=== PATIENT | female | born 1955 | race Two or more races ===

== ENCOUNTER 2024-03-07 13:04 | Outpatient (RCR) | payer OTHER, MEDICAID, SELFPAY ==
[2024-02-23 13:45] LABS: Basophils % (Auto) 1 % (0-2.5); Eosinophils # (Auto) 0.1 Thou/mm3 (0.0-0.5); Eosinophils % (Auto) 2 % (0-10); Hematocrit 37.6 % (36.0-46.0); Hemoglobin 12.5 g/dL (12.0-16.0); Immature Granulocytes % (Auto) 0 % (0-0); Immature Granulocytes Auto 0.01 Thou/mm3 (0.00-0.00); Lymphocytes % (Auto) 27 % (10-50); Mean Corpuscular HGB Conc 33.2 g/dl (31.0-37.0); Mean Corpuscular Hemoglobin 32.1 pg (25.0-35.0); Mean Corpuscular Volume 96 fL (80-100); Monocytes # (Auto) 0.6 Thou/mm3 (0.0-0.8); Monocytes % (Auto) 17 % (0-12); Neutrophils # (Auto) 1.9 Thou/mm3 (1.8-7.7); Neutrophils % (Auto) 53 % (37-80); Nucleated Red Blood Cell % 0 /100 WBC (0); Platelet Count 184 Thou/mm3 (140-440); RDW Standard Deviation 46.9 fL (36.4-46.3); White Blood Count 3.6 Thou/mm3 (3.6-11.0)
[2024-02-23 14:07] LABS: Alanine Aminotransferase 12 U/L (10-49); Albumin, Serum 4.9 gm/dL (3.4-4.8); Alkaline Phosphatase 80 U/L (46-116); Anion Gap 7 (7-16); Aspartate Amino Transferase 22 U/L (0-34); BUN/Creatinine Ratio 19 Ratio (12-20); Bilirubin,Total 0.6 mg/dL (0.3-1.2); Blood Urea Nitrogen 13 mg/dL (9-23); Calcium 9.9 mg/dL (8.3-10.6); Calcium (Corrected) 9.9 mg/dL (8.5-10.1); Carbon Dioxide 26.2 mMol/L (20.0-31.0); Chloride 105 mMol/L (98-107); Creatinine (Component) 0.7 mg/dL (0.6-1.3); Globulin 2.5 gm/dL (2.3-3.5); Glucose 78 mg/dL (74-106); LDH (Lactate Dehydrogenase) 188 U/L (120-246); Osmolality,Calculated 274 (275-295); Potassium 3.8 mMol/L (3.4-5.1); Sodium 138 mMol/L (136-145); Total Protein 7.4 gm/dL (5.7-8.2); eGFR > 60 See Note
== END 2024-03-19 23:59 | disposition home or self-care (01) ==
LOC: SCTC 13:04
PROVIDERS: Internal Medicine Hematology & Oncology; PCP Internal Medicine; Referring Provider Internal Medicine; Visit Provider Nurse Practitioner Family
DX: Z51.11 Encounter for antineoplastic chemotherapy (principal); C82.13 Follicular lymphoma grade II, intra-abdominal lymph nodes; E04.1 Nontoxic single thyroid nodule; E78.00 Pure hypercholesterolemia, unspecified
CPT/HCPCS: 36591; 80053; 83615; 84550; 85025; 96367; 96413; 96415; 96417; 99212; A4216; J1100; J1453; J1642; J2405; J3490; J7040; J7050; J9033; Q5115; A9270; G0463

== ENCOUNTER 2024-03-24 08:35 | Outpatient (RCR) | payer OTHER, MEDICAID, SELFPAY ==
[2024-03-22 15:41] LABS: Basophils % (Auto) 1 % (0-2.5); Eosinophils # (Auto) 0.1 Thou/mm3 (0.0-0.5); Eosinophils % (Auto) 5 % (0-10); Hematocrit 33.8 % (36.0-46.0); Hemoglobin 11.4 g/dL (12.0-16.0); Immature Granulocytes % (Auto) 0 % (0-0); Immature Granulocytes Auto 0.01 Thou/mm3 (0.00-0.00); Lymphocytes # (Auto) 0.6 Thou/mm3 (1.0-4.8); Lymphocytes % (Auto) 21 % (10-50); Mean Corpuscular HGB Conc 33.7 g/dl (31.0-37.0); Mean Corpuscular Hemoglobin 32.3 pg (25.0-35.0); Mean Corpuscular Volume 96 fL (80-100); Monocytes # (Auto) 0.5 Thou/mm3 (0.0-0.8); Monocytes % (Auto) 19 % (0-12); Neutrophils # (Auto) 1.5 Thou/mm3 (1.8-7.7); Neutrophils % (Auto) 54 % (37-80); Nucleated Red Blood Cell % 0 /100 WBC (0); Platelet Count 173 Thou/mm3 (140-440); RDW Standard Deviation 43.1 fL (36.4-46.3); Red Blood Count 3.53 Miln/mm3 (4.00-5.20)
[2024-03-22 15:56] LABS: White Blood Count 2.7 Thou/mm3 (3.6-11.0)
[2024-03-22 16:00] LABS: Alanine Aminotransferase 18 U/L (10-49); Albumin, Serum 4.6 gm/dL (3.4-4.8); Albumin/Globulin Ratio 2.1 (1.2-2.2); Alkaline Phosphatase 88 U/L (46-116); Anion Gap 8 (7-16); Aspartate Amino Transferase 18 U/L (0-34); BUN/Creatinine Ratio 28 Ratio (12-20); Bilirubin,Total 0.4 mg/dL (0.3-1.2); Blood Urea Nitrogen 17 mg/dL (9-23); Calcium 9.7 mg/dL (8.3-10.6); Calcium (Corrected) 9.7 mg/dL (8.5-10.1); Chloride 102 mMol/L (98-107); Creatinine (Component) 0.6 mg/dL (0.6-1.3); Globulin 2.2 gm/dL (2.3-3.5); Glucose 101 mg/dL (74-106); Osmolality,Calculated 275 (275-295); Potassium 3.7 mMol/L (3.4-5.1); Sodium 137 mMol/L (136-145); Total Protein 6.8 gm/dL (5.7-8.2); eGFR > 60 See Note
== END 2024-04-19 23:59 | disposition home or self-care (01) ==
LOC: SCTC 08:35
PROVIDERS: Internal Medicine Hematology & Oncology; PCP Internal Medicine; Referring Provider Internal Medicine; Visit Provider Nurse Practitioner Family
DX: Z51.11 Encounter for antineoplastic chemotherapy (principal); C82.13 Follicular lymphoma grade II, intra-abdominal lymph nodes; E04.1 Nontoxic single thyroid nodule; E78.00 Pure hypercholesterolemia, unspecified
CPT/HCPCS: 36591; 80053; 85025; 96367; 96413; 96415; 96417; A4216; J1100; J1453; J1642; J2405; J3490; J7040; J7050; J9033; Q5115; A9270

== ENCOUNTER 2024-05-04 13:03 | Outpatient (RCR) | payer OTHER, MEDICAID, SELFPAY ==
[2024-04-26 13:48] LABS: Basophils % (Auto) 1 % (0-2.5); Eosinophils # (Auto) 0.1 Thou/mm3 (0.0-0.5); Eosinophils % (Auto) 4 % (0-10); Hematocrit 34.8 % (36.0-46.0); Hemoglobin 11.8 g/dL (12.0-16.0); Immature Granulocytes % (Auto) 0 % (0-0); Immature Granulocytes Auto 0.01 Thou/mm3 (0.00-0.00); Lymphocytes # (Auto) 0.6 Thou/mm3 (1.0-4.8); Lymphocytes % (Auto) 19 % (10-50); Mean Corpuscular HGB Conc 33.9 g/dl (31.0-37.0); Mean Corpuscular Hemoglobin 32.2 pg (25.0-35.0); Mean Corpuscular Volume 95 fL (80-100); Monocytes # (Auto) 0.6 Thou/mm3 (0.0-0.8); Monocytes % (Auto) 18 % (0-12); Neutrophils # (Auto) 1.8 Thou/mm3 (1.8-7.7); Neutrophils % (Auto) 58 % (37-80); Nucleated Red Blood Cell % 0 /100 WBC (0); Platelet Count 203 Thou/mm3 (140-440); RDW Standard Deviation 42.5 fL (36.4-46.3); Red Blood Count 3.66 Miln/mm3 (4.00-5.20); White Blood Count 3.1 Thou/mm3 (3.6-11.0)
[2024-04-26 14:06] LABS: Alanine Aminotransferase 19 U/L (10-49); Albumin, Serum 4.8 gm/dL (3.4-4.8); Albumin/Globulin Ratio 2.1 (1.2-2.2); Alkaline Phosphatase 80 U/L (46-116); Anion Gap 8 (7-16); Aspartate Amino Transferase 12 U/L (0-34); BUN/Creatinine Ratio 33 Ratio (12-20); Bilirubin,Total 0.5 mg/dL (0.3-1.2); Blood Urea Nitrogen 20 mg/dL (9-23); Calcium 9.7 mg/dL (8.3-10.6); Calcium (Corrected) 9.7 mg/dL (8.5-10.1); Carbon Dioxide 26.8 mMol/L (20.0-31.0); Chloride 103 mMol/L (98-107); Creatinine (Component) 0.6 mg/dL (0.6-1.3); Globulin 2.3 gm/dL (2.3-3.5); Glucose 81 mg/dL (74-106); Osmolality,Calculated 277 (275-295); Potassium 4.1 mMol/L (3.4-5.1); Sodium 138 mMol/L (136-145); Total Protein 7.1 gm/dL (5.7-8.2); eGFR > 60 See Note
--- NOTE | 2024-05-04 14:01 | CTCFLWUP_ITS ---
Patient: AMY GRECO : 1955 Page 2 of 2 FOLLOW UP NOTE DATE OF SERVICE: 05/04/2024 NAME: AMY GRECO ACCOUNT: [id number] : 1955 AGE: 69 INTERVAL HISTORY: Patient is here to follow-up. Patient has completed her chemotherapy with BR for lymphoma ONCOLOGY HISTORY: DIAGNOSIS: Follicular lymphoma, unspecified, intra-abdominal lymph nodes [ICD10] C82.93 Stage III follicular lymphoma (10/12/2023) Currently on Bendamustine rituximab (12/02/2023??April 08) Hypercholesterolemia DATE OF DIAGNOSIS: September 2023 STAGE/TNM: Stage III follicular lymphoma ipi score 4 intermediate grade risk TREATMENT HISTORY: Care?Plan Start?Date Cycle Day Intent Rituxan?375?+?Bendamustine?90?Blessing 12/02/2023 1 28 Palliative HISTORY OF PRESENT ILLNESS: Ms. Greco is here at [facility] cancer center. She received 4 cycle of Bendamustine and rituximab. Patient reported nausea during chemotherapy, improved with medications, nausea has im proved since her last treatment on 02/25/2024 . Appetite is also improved. Patient reports good energ y levels. Takes her dog on daily walks. Denies any new side effects or complaints. PET/CT done on 02/11/2024 shows no lymphadenopathy, 20 mm mildly hypermetabolic right thyroid nodule. Denies any co ugh, chest pain, abdominal pain or leg cramps. Ambulating well without any help. HISTORY: Amy Greco is a 69-year-old ENG speaking female with following oncology history. 09/03/2023: Ms. Greco had abdominal ultrasound to evaluate the cause for left upper quadrant abdominal discomfort of 4 weeks duration. 10/12/2023: Ms. Greco was admitted to [facility] for further workup. A CT scan of the abdomen and pelvis to IV contrast was obtained. 10/13/2023: MRI of the thoracic spine as well as lumbar spine with IV contrast was obtained 10/13/2023: Ms. Greco had CT-guided biopsy of the retroperitoneal lymph node 12/02/2023-03/22/2024 : 4 cycles of Bendamustine and rituximab. OTHER MEDICAL HISTORY/CONDITIONS: Follicular lymphoma - dx 10/16/23 Hx Valley Fever Diagnostic Laproscopy with attempted cholecystectomy - 2015 Left Rotator cuff repair - 2011 BRUNO; BSO - 1997 Benny Tubal Ligation - 1989 FAMILY HISTORY: Sibling: Son - Testicular - dx age 2; passed age 3 1/2 Cancer History:?Pat Grandfather-Prostate - dx 80; Mat 1st cousin-breast- SOCIAL HISTORY: Occupational?History:?Retired - Worked [employer] Education?Level:?College Graduate, 4 year degree Marital?Status:? 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 Zofran - 4 mg 1 tab 2 tabs po twice a day prn nausea Medications Last Reconciled by Radha Meza MA on 05/04/2024 ALLERGIES: No Known Drug Allergies REVIEW OF SYSTEMS: A complete 14-point review of systems was performed and is negative except as noted in interval histo ry. PHYSICAL EXAMINATION: VITAL SIGNS: Temperature?99.1, B/P?151/79, Oxygen?Saturation?96% Weight?128?lbs (Change?since?04/28/24: ?-1.4?lbs) PAIN: 0 - No pain ECOG Performance Status: 0 - Asymptomatic and fully active GENERAL APPEARANCE: Appears well, in no apparent distress, appropriately interactive. HEENT: Normocephalic, no temporal wasting, normal conjunctiva, no scleral icterus, normal hearing, li ps without lesions, neck normal range of motion. CARDIOVASCULAR: Not assessed. PULMONARY: Normal respiratory effort, no respiratory distress or use of accessory muscles, speaking i n full sentences, no tachypnea. EXTREMITIES: No pedal edema or cyanosis. SKIN: Normal skin appearance. NEUROLOGIC: Alert and oriented x4. PSHYCHIATRIC: Appropriate affect, mood normal, behavior normal, intact thought and speech. LABORATORY DATA: I have personally reviewed and interpreted each of the patient?s relevant lab tests, abnormal finding s are below: Date 04/26/24 ??WHITE?BLOOD?COUNT?(Thou/mm3) 3.1?L ??RED?BLOOD?COUNT?(Miln/mm3) 3.66?L ??HEMOGLOBIN?(gm/dl) 11.8?L ??HEMATOCRIT?(%) 34.8?L ??PLATELET?COUNT?(Thou/mm3) 203 ??NEUTROPHILS?%,?AUTO?(%) 58 ??LYMPH?%,?AUTO?(%) 19 ??NEUTROPHILS,?AUTO?(Thou/mm3) 1.8 ASSESSMENT/PLAN: Follicular lymphoma B diagnosed in September 2023 Patient completed treatment with Bendamustine and Rituxan tolerated well Patient have radiating pain to the thigh patient had a lymphoma lesions in the lumbar and thoracic sp ine Will get MRI spine to evaluate PET scan in January was negative for any lymphoma Will order PET CT scan Discussed maintenance rituximab as patient had more than 3 areas of lymph node involvement had B symp toms The CT scans do not reveal if patient had splenomegaly or not Patient had symptoms as well as elevated LDH at the time of diagnosis Patient do not want to do maintenance rituximab and want to be on active surveillance CBC CMP LDH uric acid PET CT scan MRI spine RETURN TO CLINIC: With the scan results in 4 to 6 weeks BILLING AND COMPLIANCE: I reviewed external records from providers outside my specialty as summarized above. I spent a total of 50 minutes on this patient?s care on the day of their visit excluding time spent related to any bi lled procedures. This time includes time spent with the patient as well as time spent documenting in the medical record, reviewing patients records and tests, obtaining history, placing orders, communi cating with other healthcare professionals, counseling the patient, family or caregiver, and/or care coordination for the diagnoses above. Electronically Signed by: Lauri Castaneda MD T: 1:59 PM CC: PCP: Terry Colón Referring: Terry Colón This document was completed utilizing speech recognition software. Grammatical errors, random word in sertions, pronoun errors, and incomplete sentences are an occasional consequence of this system due t o software limitations, ambient noise, and hardware issues. Any formal questions or concerns about th e content, text or information contained within the body of this dictation should be directly address ed to the provider for clarification.
== END 2024-05-20 23:59 | disposition home or self-care (01) ==
LOC: SCTC 13:03
PROVIDERS: PCP Internal Medicine; Referring Provider Internal Medicine; Visit Provider Internal Medicine Hematology & Oncology
DX: Z51.11 Encounter for antineoplastic chemotherapy (principal); C82.13 Follicular lymphoma grade II, intra-abdominal lymph nodes; M79.659 Pain in unspecified thigh
CPT/HCPCS: 36591; 80053; 85025; 96367; 96375; 96413; 96415; 96417; 99212; A4216; J1100; J1200; J1453; J1642; J2405; J7040; J7050; J9033; Q5115; A9270; G0463

== ENCOUNTER → 2024-05-31 | Outpatient (CLI) | payer OTHER, MEDICAID, SELFPAY ==
[2024-05-31 09:30] LABS: Alanine Aminotransferase 18 U/L (10-49); Albumin, Serum 4.5 gm/dL (3.4-4.8); Alkaline Phosphatase 75 U/L (46-116); Anion Gap 3 (7-16); Aspartate Amino Transferase 25 U/L (0-34); BUN/Creatinine Ratio 17 Ratio (12-20); Bilirubin,Total 0.5 mg/dL (0.3-1.2); Blood Urea Nitrogen 12 mg/dL (9-23); Calcium 9.8 mg/dL (8.3-10.6); Calcium (Corrected) 9.8 mg/dL (8.5-10.1); Carbon Dioxide 28.6 mMol/L (20.0-31.0); Cardiac Risk Estimate 4.1 RATIO (3.7-5.6); Chloride 110 mMol/L (98-107); Cholesterol 225 mg/dL (132-200); Creatinine (Component) 0.7 mg/dL (0.6-1.3); Globulin 2.3 gm/dL (2.3-3.5); Glucose 100 mg/dL (74-106); HDL Cholesterol 55 mg/dL (40-60); LDL Cholesterol,Calculated 140 mg/dL (0-130); Osmolality,Calculated 282 (275-295); Potassium 3.8 mMol/L (3.4-5.1); Sodium 142 mMol/L (136-145); Total Protein 6.8 gm/dL (5.7-8.2); Triglycerides 151 mg/dL (30-150); eGFR > 60 See Note
== END | disposition home or self-care (01) ==
LOC: SLAB 07:07
PROVIDERS: PCP Internal Medicine; Referring Provider Internal Medicine; Visit Provider Internal Medicine
DX: E78.5 Hyperlipidemia, unspecified (principal)
CPT/HCPCS: 36415; 80053; 80061

== ENCOUNTER → 2024-06-01 | Outpatient (CLI) | payer OTHER, MEDICAID, SELFPAY ==
--- NOTE | 2024-06-01 08:45 | XR_ITS ---
Examination: MRI thoracic spine, without intravenous contrast. MRI thoracic spine , with intravenous contrast. Exam date and time: June 01, 2024 0915 hours INDICATIONS: Diagnosis follicular lymphoma, back pain beginning April 30, 2024 radiating to the leg Technique: Multiple axial, sagittal and coronal images of the thoracic spine have been obtained with the Siemens high-resolution 1.5 Sarah MRI scanner. Images obtained included T2 weighted fat suppressed sagittal sections, TR 3500, TE 46, T2 weighted coronal fat suppressed images, TR 3050, TE 84, T2-weighted transverse fat suppressed images, TR 30-60, TE 63, proton density transverse images, TR 4720, TE 46, and T1 weighted coronal images, TR 560, TE 13. Axial, sagittal and coronal images are obtained post intravenous injection 11 cc gadolinium. Findings: Satisfactory alignment thoracic vertebral bodies No thoracic fracture Diffuse thoracic disc desiccation Postcontrast images demonstrate no abnormal osseous epidural or thoracic cord enhancement No focal disc protrusions impinging upon the thoracic cord IMPRESSION: Diffuse thoracic degenerative disc disease No significant acquired soft tissue spinal stenosis Postcontrast images demonstrate no abnormal osseous epidural or thoracic cord enhancement, no enhancing epidural tumor impinging upon the thoracic cord
== END | disposition home or self-care (01) ==
PROVIDERS: PCP Internal Medicine; Referring Provider Internal Medicine Hematology & Oncology; Visit Provider Internal Medicine Hematology & Oncology
DX: M51.34 Other intervertebral disc degeneration, thoracic region (principal); M53.84 Other specified dorsopathies, thoracic region; C82.93 Follicular lymphoma, unspecified, intra-abdominal lymph nodes
CPT/HCPCS: 72157; A9579

== ENCOUNTER 2024-06-24 13:04 | Emergency (ER) | payer OTHER, SELFPAY ==
[2024-06-24 13:06] VITALS: BMI 19.8
[2024-06-24 13:41] VITALS: BP 132/80; PULSE 87; RESP 18; TEMP 36.9; O2SAT 99
--- NOTE | 2024-06-24 13:54 | XR_ITS ---
Examination: Duplex scan of the lower extremity, unilateral right Date and time of exam: June 24, 2024 1451 hours INDICATIONS: Right thigh and leg pain beginning 2 days ago, diagnosis lymphoma September 2023 Technique: Duplex scan of the extremity veins using B-mode/grayscale imaging and Doppler spectral analysis and color flow Attention is directed to internal echogenicity, compression and augmentation involving these veins, color flow assessment, spectral analysis Findings: Major deep venous structures in the extremity demonstrate normal course and caliber. There is no evidence of deep vein thrombosis. Normal color flow and spectral analysis Impression: Negative for DVT..
--- NOTE | 2024-06-24 13:57 | EDNOTE_ITS ---
<Statement entered by Argelia Fontaine MD - 06/25/24 16:19> As co-signing physician, I was present and available for consult prn. I concur with the plan and care as documented by the midlevel provider. ED Extremity Problem RME/HPI General Chief complaint: Extremity Problem,Nontraumatic Stated complaint: RIGHT LEG PAIN Time Seen by Provider: 06/24/24 13:38 Arrival date/time: 06/24/24 13:04 RME / HPI RME / HPI Narrative: 69-year-old female patient with significant history of lymphoma, under the care of Dr. Tripp, oncologist, came in for evaluation regarding right thigh pain. Has been having worsening right thigh pain since last night, described as dull ache, severity moderate. Patient denies any trauma or fall. Patient called her oncologist and was advised to come to the emergency room to rule out blood clots. Patient denies any other complaints no medication was taken prior to arrival. Related Data Previous Rx's ?Medication ?Instructions ?Recorded acetaminophen 300 mg-codeine 30 mg 1 tab PO Q8H PRN pa in #20 tabs 06/24/24 tablet Allergies Allergy/AdvReac Type Severity Reaction Status Date / Time No Known Allergies Allergy Verified 06/24/24 13:05 Review of Systems Review of Systems Narrative Review of Systems: Review of system reviewed and within normal limits except mentioned in HPI ED Exam Narrative Physical exam: VITAL SIGNS: Reviewed. GENERAL APPEARANCE: Alert and interactive, follows commands, no acute distress, HEAD AND FACE: Non-traumatic. ENT: PERRL, pink conjunctivitis, eyelid no trauma, Mucous membrane moist. NECK: Supple, nontender, no nuchal rigidity. CHEST: No tenderness, no crepitus, no paradoxical movement, no retractions. LUNGS: Clear, well ventilated, symmetric, no rales, no wheezing, no ronchi, no stridor, good breath sounds bilaterally. HEART: Regular rate, regular rhythm, no murmur, no gallops. ABDOMEN: Soft, positive bowel sounds, nondistended, no guarding, nontender, no rebound, no masses, RECTAL: Deferred. GENITAL: Deferred. NEUROLOGICAL: Gross motor function intact sensory function intact, Appropriate for age. MUSCULOSKELETAL: low back nontender, full range of motion. EXTREMITIES: Right thigh tenderness, no swelling, full range of motion. SKIN: Color pink, dry, no rash, no lacerations, no abrasions, no contusions. LYMPHATICS: Deferred. Course Quality Measures none Orders Category Date Time Status US venous doppler LE RT Stat Exams 06/24/24 13:54 Completed XR femur RT 2V Stat Exams 06/24/24 14:00 Completed XR pelvis 1-2V Stat Exams 06/24/24 14:00 Completed Ketorolac Inj [Toradol Inj] Med 06/24/24 13:55 Discontinued 30 mg IM X1 ONE Vital Signs Vital signs: Vital Signs Temperature 98.5 F 06/24/24 13:41 Pulse Rate 87 06/24/24 13:41 Respiratory Rate 18 06/24/24 13:41 Blood Pressure 132/80 H 06/24/24 13:41 Pulse Oximetry (%) 99 06/24/24 13:41 Oxygen Delivery Method Room Air 06/24/24 13:41 Extremity Problem MDM Narrative MDM Narrative:: 69-year-old female patient with significant history of lymphoma, under the care of Dr. Tripp, oncologist, came in for evaluation regarding right thigh pain. Has been having worsening right thigh pain since last night, described as dull ache, severity moderate. Patient denies any trauma or fall. Patient called her oncologist and was advised to come to the emergency room to rule out blood clots. Patient denies any other complaints no medication was taken prior to arrival. Ultrasound of the lower extremities negative for DVT. X-ray of the pelvis and femur also came back normal. Results discussed with the patient and family. Patient was given Toradol with complete resolution of symptoms. Patient was noted to be ambulatory with no pain. Patient appears nontoxic and hemodynamically stable. Patient discharged home and instructed to follow-up with primary care provider in 24 to 48 hours. Instructed to return to the emergency department immediately if worsening of symptoms Patient data External records reviewed:: None Clinical information provided by:: patient and family Social determinants that could affect healthcare access:: none Patient has the following chronic illnesses:: History of lymphoma How is presenting disease/condition affected by chronic disease/condition?: exacerbated by Evaluation data The following diagnostics were reviewed and interpreted by me:: radiology exam(s) Lab and/or radiology exams considered but not ordered:: None Interpretation Summary: See results MDM Medications / Prescriptions Medications or Prescriptions considered but not ordered:: None Medication administrations:: Medication Administration History Discontinued Medications Ketorolac Tromethamine (Ketorolac Inj 60 Mg/2 Ml Vial) 30 mg IM X1 ONE Stop: 06/24/24 13:56 Last Admin: 06/24/24 14:14 Dose: 30 mg Documented By: Toradol IM Consultations Consultation(s) initiated? (list below): No Diagnosis Extremity Problem Differential Diagnosis: superficial thrombophlebitis and deep vein thrombosis of lower extremity Most likely diagnosis given after review of the tests above:: Thigh pain, sciatica Admission Indicated Admission indicated?: not indicated Admission Request Was there a request for admission?: No Disposition Plan Disposition Plan: Discharge Discharge Attestation Discharge Attestation: The patient and all family members were given an opportunity to ask questions and understood the discharge instructions. Discharge instructions specifically effects, indications for sooner follow up or return to the emergency department, and the expected course of current diagnosis. Patient condition: Stable Discharge Plan Plan Patient Disposition: HOME (Self Care) Disposition Comment: stable Prescriptions/Referrals Prescriptions/Med Rec: New acetaminophen-codeine 300-30 mg tablet 1 tab PO Q8H PRN (Reason: pain) Qty: 20 0RF Referrals: Terry Colón MD [Primary Care Provider] - In 1 week Problem List Clinical Impression: Acute thigh pain, Sciatica Patient/Caregiver Discharge Instructions Discharge Activity: activity as tolerated Education Materials: ED Sciatica Additional Instructions: Thank you for the opportunity for serving you today. You are stable for discharged . You are advised to: Follow-up with your PCP in 1 to 2 days Return to ED for worsening of symptoms Increase oral fluids Take medication as prescribed Print Language: [place] Stand Alone Forms: Perlita Award Info., Patient Portal Info Letter CORTEZ/LESLY Supervising Physician CORTEZ/LESLY Supervising Physician: Md Zhen
--- NOTE | 2024-06-24 14:00 | XR_ITS ---
Examination: AP pelvis single view Technique one AP portable pelvis single view Exam date and time: June 24, 2024 1425 hours INDICATIONS: Undergoing chemotherapy, pelvic pain beginning April 2024 FINDINGS: Intact hips and pelvis No osteolytic lesions identified No fractures IMPRESSION: No findings of osseous metastatic disease
--- NOTE | 2024-06-24 14:00 | XR_ITS ---
Examination: Right femur 2 views Technique one AP lateral right femur 2 views Exam date and time: June 24, 2024 1426 hours INDICATIONS: Right femur pain after chemotherapy beginning April 2024 FINDINGS: Significant osteopenia No right hip fracture or dislocation Shaft of the femur intact No cortical bone destruction IMPRESSION: No fracture or cortical bone destruction
[2024-06-24] MEDS: KETOROLAC INJ 60 MG/2 ML VIAL 30 MG IM (14:14)
== END 2024-06-24 16:05 | disposition home or self-care (01) ==
PROVIDERS: Emergency Provider Emergency Medicine; PCP Internal Medicine
DX: M54.31 Sciatica, right side (principal); M79.651 Pain in right thigh; R10.2 Pelvic and perineal pain
CPT/HCPCS: 72170; 73552; 93971; 96372; 99284; J1885

== ENCOUNTER 2024-07-11 11:32 | Outpatient (RCR) | payer OTHER, SELFPAY ==
[2024-07-08 11:29] LABS: Basophils % (Auto) 1 % (0-2.5); Eosinophils # (Auto) 0.2 Thou/mm3 (0.0-0.5); Eosinophils % (Auto) 5 % (0-10); Hemoglobin 11.8 g/dL (12.0-16.0); Immature Granulocytes % (Auto) 5 % (0-0); Immature Granulocytes Auto 0.16 Thou/mm3 (0.00-0.00); Lymphocytes # (Auto) 0.7 Thou/mm3 (1.0-4.8); Lymphocytes % (Auto) 22 % (10-50); Mean Corpuscular HGB Conc 32.8 g/dl (31.0-37.0); Mean Corpuscular Hemoglobin 31.4 pg (25.0-35.0); Mean Corpuscular Volume 96 fL (80-100); Monocytes # (Auto) 0.3 Thou/mm3 (0.0-0.8); Monocytes % (Auto) 11 % (0-12); Neutrophils # (Auto) 1.8 Thou/mm3 (1.8-7.7); Neutrophils % (Auto) 56 % (37-80); Nucleated Red Blood Cell % 0 /100 WBC (0); Platelet Count 269 Thou/mm3 (140-440); RDW Standard Deviation 42.5 fL (36.4-46.3); Red Blood Count 3.76 Miln/mm3 (4.00-5.20); White Blood Count 3.2 Thou/mm3 (3.6-11.0)
[2024-07-08 11:54] LABS: Alanine Aminotransferase 11 U/L (10-49); Albumin, Serum 4.5 gm/dL (3.4-4.8); Albumin/Globulin Ratio 1.8 (1.2-2.2); Alkaline Phosphatase 83 U/L (46-116); Anion Gap 6 (7-16); Aspartate Amino Transferase 26 U/L (0-34); BUN/Creatinine Ratio 17 Ratio (12-20); Bilirubin,Total 0.5 mg/dL (0.3-1.2); Blood Urea Nitrogen 12 mg/dL (9-23); Calcium 9.9 mg/dL (8.3-10.6); Calcium (Corrected) 9.9 mg/dL (8.5-10.1); Carbon Dioxide 27.3 mMol/L (20.0-31.0); Chloride 106 mMol/L (98-107); Creatinine (Component) 0.7 mg/dL (0.6-1.3); Globulin 2.5 gm/dL (2.3-3.5); Glucose 94 mg/dL (74-106); LDH (Lactate Dehydrogenase) 270 U/L (120-246); Osmolality,Calculated 277 (275-295); Potassium 4.1 mMol/L (3.4-5.1); Sodium 139 mMol/L (136-145); Uric Acid 4.7 mg/dL (3.1-7.8); eGFR > 60 See Note
--- NOTE | 2024-07-12 01:36 | CTCFLWUP_ITS ---
Patient: AMY GRECO : 1955 Page 6 of 8 FOLLOW UP NOTE DATE OF SERVICE: 07/11/2024 NAME: AMY GRECO ACCOUNT: [id number] : 1955 AGE: 69 INTERVAL HISTORY: Patient is here to follow-up. Patient has completed her chemotherapy with BR for lymphoma. At last visit was complaining of back aches and ordered mri spine as well x rays as recommended by Radiology . patient is here to dicsuss the results. No new complains. ONCOLOGY HISTORY: DIAGNOSIS: Follicular lymphoma, unspecified, intra-abdominal lymph nodes [ICD10] C82.93 Stage III follicular lymphoma (10/12/2023) Currently on Bendamustine rituximab (12/02/2023??March 2024) Hypercholesterolemia DATE OF DIAGNOSIS: September 2023 STAGE/TNM: Stage III follicular lymphoma ipi score 4 intermediate grade risk TREATMENT HISTORY: Care?Plan Start?Date Cycle Day Intent Rituxan?375?+?Bendamustine?90?Blessing 12/02/2023 1 28 Palliative HISTORY OF PRESENT ILLNESS: Ms. Greco is here at [facility] cancer center. She received 4 cycle of Bendamustine and rituximab. Patient reported nausea during chemotherapy, improved with medications, nausea has improved since her last treatment on 02/25/2024 . Appetite is also improved. Patient reports good energy levels. Takes her dog on daily walks. Denies any new side effects or complaints. PET/CT done on 02/11/2024 shows no lymphadenopathy, 20 mm mildly hypermetabolic right thyroid nodule. Denies any cough, chest pain, abdominal pain or leg cramps. Ambulating well without any help. HISTORY: Amy Greco is a 69-year-old ENG speaking female with following oncology history. 09/03/2023: Ms. Greco had abdominal ultrasound to evaluate the cause for left upper quadrant abdominal discomfort of 4 weeks duration. 10/12/2023: Ms. Greco was admitted to [facility] for further workup. A CT scan of the abdomen and pelvis to IV contrast was obtained. 10/13/2023: MRI of the thoracic spine as well as lumbar spine with IV contrast was obtained 10/13/2023: Ms. Greco had CT-guided biopsy of the retroperitoneal lymph node 12/02/2023-03/22/2024 : 4 cycles of Bendamustine and rituximab. OTHER MEDICAL HISTORY/CONDITIONS: Follicular lymphoma - dx 10/16/23 Hx [place] Fever Diagnostic Laproscopy with attempted cholecystectomy - 2015 Left Rotator cuff repair - 2011 BRUNO; BSO - 1997 Benny Tubal Ligation - 1989 FAMILY HISTORY: Sibling: Son - Testicular - dx age 2; passed age 3 1/2 Cancer History:?Pat Grandfather-Prostate - dx 79; Mat 1st cousin-breast- SOCIAL HISTORY: Occupational?History:?Retired - Worked [employer] Education?Level:?College Graduate, 4 year degree Marital?Status:? 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 Zofran - 4 mg 1 tab 2 tabs po twice a day prn nausea Medications Last Reconciled by Radha Meza MA on 07/11/2024 ALLERGIES: No Known Drug Allergies REVIEW OF SYSTEMS: A complete 14-point review of systems was performed and is negative except as noted in interval history. PHYSICAL EXAMINATION: VITAL SIGNS: Temperature?99.3, B/P?145/90, Oxygen?Saturation?96% Weight?127?lbs (Change?since?07/08/24:?-1.2?lbs) PAIN: 2 - Mild pain ECOG Performance Status: 0 - Asymptomatic and fully active GENERAL APPEARANCE: Appears well, in no apparent distress, appropriately interactive. HEENT: Normocephalic, no temporal wasting, normal conjunctiva, no scleral icterus, normal hearing, lips without lesions, neck normal range of motion. CARDIOVASCULAR: Not assessed. PULMONARY: Normal respiratory effort, no respiratory distress or use of accessory muscles, speaking in full sentences, no tachypnea. EXTREMITIES: No pedal edema or cyanosis. SKIN: Normal skin appearance. NEUROLOGIC: Alert and oriented x4. PSHYCHIATRIC: Appropriate affect, mood normal, behavior normal, intact thought and speech. LABORATORY DATA: I have personally reviewed and interpreted each of the patient?s relevant lab tests, abnormal findings are below: Date 05/31/24 07/08/24 ??WHITE?BLOOD?COUNT?(Thou/mm3) ? 3.2?L ??RED?BLOOD?COUNT?(Miln/mm3) ? 3.76?L ??HEMOGLOBIN?(gm/dl) ? 11.8?L ??HEMATOCRIT?(%) ? 36.0 ??PLATELET?COUNT?(Thou/mm3) ? 269 ??NEUTROPHILS?%,?AUTO?(%) ? 56 ??LYMPH?%,?AUTO?(%) ? 22 ??NEUTROPHILS,?AUTO?(Thou/mm3) ? 1.8 ??GLUCOSE,RANDOM?(mg/dL) 100 94 ??BLOOD?UREA?NITROGEN?(mg/dL) 12 12 ??CREATININE?(mg/dL) 0.70 0.70 ??SODIUM?(mmol/L) 142 139 ??POTASSIUM?(mmol/L) 3.8 4.1 ??CHLORIDE?(mmol/L) 110?H 106 ??CrCl?(CandG)?(ml/min) 68.54 68.65 ??AST/SGOT?(Unit/L) 25 26 ??ALT/SGPT?(Unit/L) 18 11 ??ALKALINE?PHOSPHATASE?(Unit/L) 75 83 ??BILIRUBIN,?TOTAL?(mg/dL) 0.5 0.5 ??PROTEIN?TOTAL?(gm/dl) 6.8 7.0 ??ALBUMIN,?SERUM?(gm/dl) 4.5 4.5 ??GLOBULIN?(gm/dl) 2.3 2.5 ??ALBUMIN/GLOBULIN?RATIO 2.0 1.8 ??CALCIUM,?SERUM?(mg/dL) 9.8 9.9 ??CALCIUM?SERUM?(CORRECTED)?(mg/dL) 9.8 9.9 ??LDH,?TOTAL?(Unit/L) ? 270?H ASSESSMENT/PLAN: Follicular lymphoma B diagnosed in September 2023 Patient completed treatment with Bendamustine and Rituxan tolerated well Patient have radiating pain to the thigh patient had a lymphoma lesions in the lumbar and thoracic spine Will get MRI spine to evaluate PET scan in January was negative for any lymphoma PET scan reordered Discussed maintenance rituximab as patient had more than 3 areas of lymph node involvement had B symptoms The CT scans do not reveal if patient had splenomegaly or not Patient had symptoms as well as elevated LDH at the time of diagnosis Patient do not want to do maintenance rituximab and want to be on active surveillance Mri spine and x ray reviewed and no evidence of malignancy Patient have severe arthritis CBC CMP LDH uric acid PET CT scan ORDERS: Order # Description [id number] MD Follow Up 6 Month [id number] Uric Acid, Serum + Comprehensive Metabolic Panel - 12 + CBC with Auto Diff + MD Follow Up 6 Month [id number] Lactate Dehydrogenase (LDH) RETURN TO CLINIC: 6 month s BILLING AND COMPLIANCE: I reviewed external records from providers outside my specialty as summarized above. I spent a total of 50 minutes on this patient?s care on the day of their visit excluding time spent related to any billed procedures. This time includes time spent with the patient as well as time spent documenting in the medical record, reviewing patients records and tests, obtaining history, placing orders, communicating with other healthcare professionals, counseling the patient, family or caregiver, and/or care coordination for the diagnoses above. Electronically Signed by: Lauri Castaneda MD T: 1:34 AM CC: PCP: Terry Colón Referring: Terry Colón This document was completed utilizing speech recognition software. Grammatical errors, random word insertions, pronoun errors, and incomplete sentences are an occasional consequence of this system due to software limitations, ambient noise, and hardware issues. Any formal questions or concerns about the content, text or information contained within the body of this dictation should be directly addressed to the provider for clarification.
== END 2024-07-18 23:59 | disposition home or self-care (01) ==
LOC: SCTC 11:32
PROVIDERS: PCP Internal Medicine; Referring Provider Internal Medicine; Visit Provider Internal Medicine Hematology & Oncology
DX: C82.93 Follicular lymphoma, unspecified, intra-abdominal lymph nodes (principal)
CPT/HCPCS: 36591; 80053; 83615; 84550; 85025; 99212; A4216; J1642; G0463

== ENCOUNTER 2024-08-09 11:05 | Emergency (ER) | payer OTHER, SELFPAY ==
--- NOTE | 2024-08-09 | XR_ITS ---
Examination: MRI lumbar spine without contrast Date and time of exam: August 09, 2024 1458 hours Comparison October 13, 2023 INDICATIONS: Low back pain radiating down the right leg beginning June 2024 Technique: Multiple MRI axial and sagittal sections lumbar spine. Sagittal T2-weighted images, TR 3500, TE 118 T1 weighted transverse sections, TR 688 T8.5, T2-weighted sagittal sections T1 weighted sagittal sections TR 621, TE 30 T2 axial sections, TR 4, 190, TE 84. Findings: Adequate alignment lumbar vertebral bodies No lumbar fracture Advanced disc narrowing L5-S1 No spondylolisthesis L5-S1 5 mm central paracentral disc bulge displacing the right S1 nerve root L4-L5 3 mm central lumbar disc bulge L3-L4 no disc protrusion L2-L3 no disc protrusion L1-L2 no disc protrusion IMPRESSION: Advanced degenerative disc disease L5-S1 L5-S1 5 mm central paracentral disc bulge displacing the right S1 nerve root L4-L5 3 mm central lumbar disc bulge
[2024-08-09 11:07] VITALS: BMI 20.1
[2024-08-09 11:42] VITALS: BP 129/60; PULSE 77; RESP 19; TEMP 36.8; O2SAT 98
--- NOTE | 2024-08-09 11:54 | PD.EDRME ---
Rapid Medical Screening Exam E Arrival date/time: 08/09/24 11:05 61-year-old female with a history of hyperlipidemia, and follicular lymphoma presents to the emergency room with a chief complaint of right sided hip pain that radiates down her right leg. Patient states she was seen here and was discharged and told she had sciatica patient states her pain has progressively gotten worse and now she is unable to walk without a cane. Patient states she has numbness to the area and tingling. I have greeted and performed a focused initial assessment of this patient. A comprehensive ED assessment and evaluation of the patient, analysis of all test results, and completion of the medical decision making process will be conducted by additional ED providers. Chief Complaint: Extremity Injury, Lower Vital signs: Vital Signs Temperature 98.3 F 08/09/24 11:42 Pulse Rate 77 08/09/24 11:42 Respiratory Rate 19 08/09/24 11:42 Blood Pressure 129/60 08/09/24 11:42 Pulse Oximetry (%) 98 08/09/24 11:42 Oxygen Delivery Method Room Air 08/09/24 11:42 Vital signs reviewed by provider: Yes
[2024-08-09] MEDS: KETOROLAC INJ 60 MG/2 ML VIAL 30 MG IM (12:09)
[2024-08-09 12:25] LABS: Basophils % (Auto) 1 % (0-2.5); Eosinophils % (Auto) 1 % (0-10); Hematocrit 35.8 % (36.0-46.0); Immature Granulocytes % (Auto) 2 % (0-0); Immature Granulocytes Auto 0.14 Thou/mm3 (0.00-0.00); Lymphocytes # (Auto) 0.4 Thou/mm3 (1.0-4.8); Lymphocytes % (Auto) 6 % (10-50); Mean Corpuscular HGB Conc 33.5 g/dl (31.0-37.0); Mean Corpuscular Hemoglobin 30.9 pg (25.0-35.0); Mean Corpuscular Volume 92 fL (80-100); Monocytes # (Auto) 0.4 Thou/mm3 (0.0-0.8); Monocytes % (Auto) 6 % (0-12); Neutrophils # (Auto) 4.9 Thou/mm3 (1.8-7.7); Neutrophils % (Auto) 84 % (37-80); Nucleated Red Blood Cell % 0 /100 WBC (0); Platelet Count 239 Thou/mm3 (140-440); RDW Standard Deviation 41.9 fL (36.4-46.3); Red Blood Count 3.88 Miln/mm3 (4.00-5.20); White Blood Count 5.9 Thou/mm3 (3.6-11.0)
[2024-08-09 12:46] LABS: Alanine Aminotransferase 15 U/L (10-49); Albumin, Serum 4.8 gm/dL (3.4-4.8); Albumin/Globulin Ratio 1.8 (1.2-2.2); Alkaline Phosphatase 91 U/L (46-116); Anion Gap 5 (7-16); Aspartate Amino Transferase 25 U/L (0-34); BUN/Creatinine Ratio 23 Ratio (12-20); Bilirubin,Total 0.6 mg/dL (0.3-1.2); Blood Urea Nitrogen 16 mg/dL (9-23); Calcium 10.4 mg/dL (8.3-10.6); Calcium (Corrected) 10.4 mg/dL (8.5-10.1); Carbon Dioxide 26.6 mMol/L (20.0-31.0); Chloride 107 mMol/L (98-107); Creatinine (Component) 0.7 mg/dL (0.6-1.3); Estimated Creatinine Clearance 66.9 mL/min (>60); Globulin 2.6 gm/dL (2.3-3.5); Glucose 108 mg/dL (74-106); Osmolality,Calculated 279 (275-295); Potassium 4.1 mMol/L (3.4-5.1); Prothrombin Time 11.2 Seconds (9.0-12.2); Sodium 139 mMol/L (136-145); Total Protein 7.4 gm/dL (5.7-8.2); eGFR > 60 See Note
--- NOTE | 2024-08-09 16:53 | EDNOTE_ITS ---
Lower Extremity Injury RME/HPI General Chief Complaint: Extremity Injury, Lower Stated Complaint: EXTREME PAIN IN R) LEG Arrival date/time: 08/09/24 11:05 Limitations: no limitations RME / HPI RME / HPI Narrative: 08/09/24 11:05 61-year-old female with a history of hyperlipidemia, and follicular lymphoma presents to the emergency room with a chief complaint of right sided hip pain that radiates down her right leg. Patient states she was seen here and was discharged and told she had sciatica patient states her pain has progressively gotten worse and now she is unable to walk without a cane. Patient states she has numbness to the area and tingling. I have greeted and performed a focused initial assessment of this patient. A comprehensive ED assessment and evaluation of the patient, analysis of all test results, and completion of the medical decision making process will be conducted by additional ED providers. DR. PENG MAIN ED EVALUATION: 69 year old female presents to the Emergency Department with with complaint of right sided lateral thigh pain. Pain is described as aching and rated severe. Movement and walking exacerbate the pain. No injury reported. No o ther symptoms reported at this time. PMHx: Stage III follicular lymphoma (10/12/2023), currently on Bendamustine rituximab (12/02/2023??March 2024), hypercholesterolemia. Social Hx: No tobacco, alcohol, or substance use. Related Data Previous Rx's ?Medication ?Instructions ?Recorded acetaminophen 300 mg-codeine 30 mg 1 tab PO Q8H PRN pa in #20 tabs 06/24/24 tablet gabapentin 300 mg capsule 300 mg PO TID prn pain #30 c aps 08/09/24 (Neurontin) hydrocodone 10 mg-acetaminophen 1 tab PO BID PRN pain #20 tabs 08/09/24 325 mg tablet Allergies Allergy/AdvReac Type Severity Reaction Status Date / Time No Known Allergies Allergy Verified 06/24/24 13:05 Review of Systems Review of Systems Systems Reviewed: All systems reviewed, normal except as documented Past Medical History Past Medical History GASTROINTESTINAL: Positive Gastrointestinal Disorders (FOLICULAR LYMPHOMA) REPRODUCTIVE: Positive Endometriosis (HYSTERECTOMY 26 YEARS +) Social History SMOKING STATUS: Never smoker SUBSTANCE USE: does not use ALCOHOL: Never Past Medical History Comments PMH COMMENT: Stage III follicular lymphoma (10/12/2023), currently on Bendamustine rituximab (12/02/2023??March 2024), hypercholesterolemia. ED Exam General Limitations: Present no limitations General appearance: Present alert, in no apparent distress and anxious Head Head exam: Present atraumatic, normocephalic and normal inspection Eye Eye exam: Present normal appearance, PERRL and EOMI ENT ENT exam: Present normal exam, normal oropharynx and mucous membranes moist Neck Neck exam: Present normal inspection, full ROM and trachea midline Chest Chest inspection: Present normal inspection and symmetric chest wall rise Respiratory Respiratory exam: Present normal lung sounds bilaterally Cardiovascular Cardiovascular exam: Present regular rate, normal rhythm and normal heart sounds Abdominal Exam Abdominal exam: Present soft and normal bowel sounds Extremities Exam Extremities exam: Present full ROM and tenderness (right lateral thigh tenderness on palpation) Back Exam Back exam: Present normal inspection and full ROM Neurological Exam Neurological exam: Present alert, oriented X3 and CN II-XII intact Psychiatric Psychiatric exam: Present normal affect and normal mood Skin Skin exam: Present warm, dry, intact and normal color Course Quality Measures none Orders Category Date Time Status MRI Screening NOW Care 08/09/24 11:51 Active MR lumbar spine wo con Stat Exams 08/09/24 Completed CBC Stat Lab 08/09/24 12:00 Completed CMP [Comprehensive Metabolic Panel] Stat Lab 08/09/24 12:00 Completed PT [Prothrombin Time with INR] Stat Lab 08/09/24 12:00 Completed PTT [Partial Thromboplastin Time] Stat Lab 08/09/24 12:00 Completed Ketorolac Inj [Toradol Inj] Med 08/09/24 11:51 Discontinued 30 mg IM X1 ONE Vital Signs Vital signs: Vital Signs Temperature 98.3 F 08/09/24 11:42 Pulse Rate 77 08/09/24 11:42 Respiratory Rate 19 08/09/24 11:42 Blood Pressure 129/60 08/09/24 11:42 Pulse Oximetry (%) 98 08/09/24 11:42 Oxygen Delivery Method Room Air 08/09/24 11:42 Extremity Injury, Lower MDM Narrative MDM Narrative:: Noy Chaudhry am scribing for and in the presence of Dr. Peng. Patient data External records reviewed:: [facility] previous records (Reviewed oncology note by Dr. 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 How is presenting disease/condition affected by chronic disease/condition?: exacerbated by Evaluation data The following diagnostics were reviewed and interpreted by me:: lab results and radiology exam(s) Lab and/or radiology exams considered but not ordered:: none Interpretation Summary: Procedure(s): MR lumbar spine wo con Accession Number(s): [id number] cc: Spike Cali; Jeet Tucker MD; Terry Colón MD~ Examination: MRI lumbar spine without contrast Date and time of exam: August 09, 2024 1458 hours Comparison October 13, 2023 INDICATIONS: Low back pain radiating down the right leg beginning June 2024 Technique: Multiple MRI axial and sagittal sections lumbar spine. Sagittal T2-weighted images, TR 3500, TE 118 T1 weighted transverse sections, TR 688 T8.5, T2-weighted sagittal sections T1 weighted sagittal sections TR 621, TE 30 T2 axial sections, TR 4, 190, TE 84. Findings: Adequate alignment lumbar vertebral bodies No lumbar fracture Advanced disc narrowing L5-S1 No spondylolisthesis L5-S1 5 mm central paracentral disc bulge displacing the right S1 nerve root L4-L5 3 mm central lumbar disc bulge L3-L4 no disc protrusion L2-L3 no disc protrusion L1-L2 no disc protrusion IMPRESSION: Advanced degenerative disc disease L5-S1 L5-S1 5 mm central paracentral disc bulge displacing the right S1 nerve root L4-L5 3 mm central lumbar disc bulge Dictated By: Jeet Tucker MD Medications / Prescriptions Medications or Prescriptions considered but not ordered:: none Medication administrations:: Medication Administration History Discontinued Medications Ketorolac Tromethamine (Ketorolac Inj 60 Mg/2 Ml Vial) 30 mg IM X1 ONE Stop: 08/09/24 11:52 Last Admin: 08/09/24 12:09 Dose: 30 mg Documented By: VALDEMAR see above Consultations Consultation(s) initiated? (list below): Yes Consultation #1 (Physician, Specialty, Details): Discussed test HPI, PMHx, lab, radiology results and/or management with Dr. Colón, patient's PCP. Recommends discharged and follow up wtih her as an outpatient. Time: 17:00 Diagnosis Extremity Injury, Lower Differential Diagnosis: fracture of femur, fracture of hip and other (DVT, right lower leg strain) Most likely diagnosis given after review of the tests above:: - L5-S1 5 mm central paracentral disc bulge displacing the right S1 nerve root - L4-L5 3 mm central lumbar disc bulge - Hisotry of B-cell lymphoma Admission Indicated Admission indicated?: not indicated Admission Request Was there a request for admission?: No Disposition Plan Disposition Plan: Discharge Discharge Attestation Discharge Attestation: The patient and all family members were given an opportunity to ask questions and understood the discharge instructions. Discharge instructions specifically effects, indications for sooner follow up or return to the emergency department, and the expected course of current diagnosis. Patient condition: Stable Discharge Plan Plan Patient Disposition: HOME (Self Care) Patient condition on transfer: Stable Prescriptions/Referrals Prescriptions/Med Rec: New hydrocodone-acetaminophen 10-325 mg tablet 1 tab PO BID MDD 4 PRN (Reason: pain) Qty: 20 0RF gabapentin [Neurontin] 300 mg capsule 300 mg PO TID Qty: 30 0RF No Action acetaminophen-codeine 300-30 mg tablet 1 tab PO Q8H PRN (Reason: pain) Qty: 20 0RF Referrals: Terry Colón MD [Primary Care Provider] - In 1 week Problem List Clinical Impression: History of B-cell lymphoma, Bulging discs, Bulging of intervertebral disc between L4 and L5 Patient/Caregiver Discharge Instructions Additional Instructions: Please follow-up with your primary care physician within a week. Return to the Emergency Department as needed. Print Language: Tongan Stand Alone Forms: [facility] Award Info., Patient Portal Info Letter
[2024-08-09] MEDS: HYDROmorphone INJ 2 MG/ML VIAL 1 MG IM (17:13)
[2024-08-09] MEDS: ONDANSETRON ODT 4 MG TABRAP PO (17:13)
[2024-08-09 17:26] VITALS: BP 124/84; PULSE 77
== END 2024-08-09 17:28 | disposition home or self-care (01) ==
PROVIDERS: Nurse Practitioner Family; Emergency Provider Family Medicine; PCP Internal Medicine
DX: M51.370 Other intervertebral disc degeneration, lumbosacral region with discogenic back pain only (principal); M51.360 Other intervertebral disc degeneration, lumbar region with discogenic back pain only; C82.93 Follicular lymphoma, unspecified, intra-abdominal lymph nodes
CPT/HCPCS: 36415; 72148; 80053; 85025; 85610; 85730; 96372; 99284; J1885; J3490; Q0162

== ENCOUNTER 2024-08-16 11:23 | Outpatient (RCR) | payer OTHER, SELFPAY ==
--- NOTE | 2024-08-16 14:26 | CTCFLWUP_ITS ---
Patient: AMY GRECO : 1955 Page 2 of 2 FOLLOW UP NOTE DATE OF SERVICE: 08/16/2024 NAME: AMY GRECO ACCOUNT: [id number] : 1955 AGE: 69 INTERVAL HISTORY: Amy Greco, a patient with follicular lymphoma stage III, presented with severe radiating leg pain worsening since June 20 despite hydrocodone-acetaminophen and gabapentin. Pain significantly limited mobility. Recent ER ultrasound and x- ray showed no abnormalities, while MRI revealed disc bulges inconsistent with symptoms. Assessment included possible degenerative disc disease, chemotherapy-induced neuropathy, or arthritis. Plan: discontinue [place], increase gabapentin to 600mg q6-8h, neurology referral, physical therapy, magnesium citrate and glycerin suppository for constipation, and consideration of higher- level evaluation if pain persists. Chief Complaint Severe leg pain worsening over the weekend, difficulty moving on her own History of Present Illness Amy Greco, a patient with a history of follicular lymphoma stage 3, presents with severe leg pain that has been worsening since its onset on June 20. The patient reports that the pain is primarily located in the back of her thigh and radiates down her leg, consistent with sciatic nerve pain. She describes the pain as severe, stating that it feels like her leg is giving up and that she has lost muscle strength. The pain has significantly impacted her mobility, making it difficult for her to move on her own or sit comfortably. The patient's daughter reports that the pain has worsened over the weekend, despite the use of prescribed pain medication. They visited the emergency room last week due to the severity of the pain, where an ultrasound and x-ray were performed, showing no significant findings. The emergency room physician suggested it might be a degenerative disease. The patient was subsequently referred to an orthopedic surgeon. Current pain management includes hydrocodone 10-325 mg ([place]) and gabapentin 300 mg. The patient's daughter reports administering [place] before car trips due to the pain exacerbation during travel. However, the patient states that she is still experiencing significant pain even with the [place]. They have also tried using a topical cream, which has not provided relief. The patient's mobility has been severely limited due to the pain. She has been unable to attend scheduled physical therapy appointments and has difficulty with basic movements. Her daughter reports attempts to encourage walking and sitting, but these efforts have been hindered by the severity of the pain. Recent healthcare interactions include an emergency room visit last week and a doctor's appointment on the previous Thursday. The patient has been referred to a neurologist, as there is a suspicion that the pain could be neuropathy related to her previous chemotherapy treatment with bendamustine. Medical History - Follicular lymphoma, stage 3 - Emergency room visit for severe leg pain - Sciatic nerve pain - Bulging discs Medications and Supplements - Hydrocodone 10 mg/Acetaminophen 325 mg - Given before trip due to severe pain - Gabapentin 300 mg - Taking 600 mg doses - [place] Social History - Substance Use: Marijuana use mentioned (cream form) - Living Situation: Lives with family member (grandson mentioned) - Exercise: Limited physical activity due to pain; advised to increase exercise Review of Systems General: Positive for feeling hot. Musculoskeletal: Positive for leg pain, worsening pain, and decreased muscle strength in the leg. Neurological: Positive for sciatic nerve pain and neuropathy in fingertips. Gastrointestinal: Positive for constipation. Physical Examination Musculoskeletal: Patient instructed to move feet. Observed patient's ability to stand with support. Laboratory, Imaging, and Diagnostic Test Results - Date: 06/24/2024 - Ultrasound: No abnormalities reported - X-ray: No abnormalities reported - MRI (date not specified): - Findings: Disc bulges noted, but symptoms reported as not matching disc involvement in spine ONCOLOGY HISTORY: DIAGNOSIS: Follicular lymphoma, unspecified, intra-abdominal lymph nodes [ICD10] C82.93 Stage III follicular lymphoma (10/12/2023) Currently on Bendamustine rituximab (12/02/2023??March 2024) Hypercholesterolemia DATE OF DIAGNOSIS: September 2023 STAGE/TNM: Stage III follicular lymphoma ipi score 4 intermediate grade risk TREATMENT HISTORY: Care?Plan Start?Date Cycle Day Intent Rituxan?375?+?Bendamustine?90?Blessing 12/02/2023 1 28 Palliative HISTORY OF PRESENT ILLNESS: Ms. Greco is here at [facility] cancer center. She received 4 cycle of Bendamustine and rituximab. Patient reported nausea during chemotherapy, improved with medications, nausea has improved since her last treatment on 02/25/2024 . Appetite is also improved. Patient reports good energy levels. Takes her dog on daily walks. Denies any new side effects or complaints. PET/CT done on 02/11/2024 shows no lymphadenopathy, 20 mm mildly hypermetabolic right thyroid nodule. Denies any cough, chest pain, abdominal pain or leg cramps. Ambulating well without any help. HISTORY: Amy Greco is a 69-year-old ENG speaking female with following oncology history. 09/03/2023: Ms. Greco had abdominal ultrasound to evaluate the cause for left upper quadrant abdominal discomfort of 4 weeks duration. 10/12/2023: Ms. Greco was admitted to [facility] for further workup. A CT scan of the abdomen and pelvis to IV contrast was obtained. 10/13/2023: MRI of the thoracic spine as well as lumbar spine with IV contrast was obtained 10/13/2023: Ms. Greco had CT-guided biopsy of the retroperitoneal lymph node 12/02/2023-03/22/2024 : 4 cycles of Bendamustine and rituximab. OTHER MEDICAL HISTORY/CONDITIONS: Follicular lymphoma - dx 10/16/23 Hx [place] Fever Diagnostic Laproscopy with attempted cholecystectomy - 2015 Left Rotator cuff repair - 2011 BRUNO; BSO - 1997 Benny Tubal Ligation - 1989 FAMILY HISTORY: Sibling: Son - Testicular - dx age 2; passed age 3 1/2 Cancer History:?Pat Grandfather-Prostate - dx 80; Mat 1st cousin-breast- SOCIAL HISTORY: Occupational?History:?Retired - Worked [employer] Education?Level:?College Graduate, 4 year degree Marital?Status:? Tobacco?Use:?Denies ETOH?Use:?Denies Drug?Note:?Denies Social?History?Note:?Lives?alone PHYS THERAPIST HISTORY: Menarche?-?Age:?11 Menopause:?1997 Hormone?Use:?Denies :?3 Live?Births:?3 Age?1st?:?18 MEDICATIONS: 1. diclofenac potassium - 50 mg tab As directed 2. gabapentin - 600 mg 1 tab 1 tab every 8 hrs as needed for pain 3. gabapentin - 300 mg 1 tab Three times a day 4. HYDROcodone-acetaminophen - 10-325 mg 1 tab Twice a Day 5. magnesium citrate - 200 mL weekly 6. Zofran - 4 mg 1 tab 2 tabs po twice a day prn nausea Medications Last Reconciled by Odalis Moreira MA on 08/16/2024 ALLERGIES: No Known Drug Allergies REVIEW OF SYSTEMS: A complete 14-point review of systems was performed and is negative except as noted in interval history. PHYSICAL EXAMINATION: VITAL SIGNS: Temperature?97.7, B/P?123/74, Oxygen?Saturation?99% PAIN: 9 - Between very severe and worst possible pain ECOG Performance Status: 1 - Symptomatic; ambulatory; restricted in strenuous activity GENERAL APPEARANCE: Appears well, in no apparent distress, appropriately interactive. HEENT: Normocephalic, no temporal wasting, normal conjunctiva, no scleral icterus, normal hearing, lips without lesions, neck normal range of motion. CARDIOVASCULAR: Not assessed. PULMONARY: Normal respiratory effort, no respiratory distress or use of accessory muscles, speaking in full sentences, no tachypnea. EXTREMITIES: No pedal edema or cyanosis. SKIN: Normal skin appearance. NEUROLOGIC: Alert and oriented x4. PSHYCHIATRIC: Appropriate affect, mood normal, behavior normal, intact thought and speech. LABORATORY DATA: I have personally reviewed and interpreted each of the patient?s relevant lab tests, abnormal findings are below: Date 07/08/24 08/09/24 ??WHITE?BLOOD?COUNT?(Thou/mm3) 3.2?L 5.9 ??RED?BLOOD?COUNT?(Miln/mm3) 3.76?L 3.88?L ??HEMOGLOBIN?(gm/dl) 11.8?L 12.0 ??HEMATOCRIT?(%) 36.0 35.8?L ??PLATELET?COUNT?(Thou/mm3) 269 239 ??NEUTROPHILS?%,?AUTO?(%) 56 84?H ??LYMPH?%,?AUTO?(%) 22 6?L ??NEUTROPHILS,?AUTO?(Thou/mm3) 1.8 4.9 ??GLUCOSE,RANDOM?(mg/dL) 94 108?H ??BLOOD?UREA?NITROGEN?(mg/dL) 12 16 ??CREATININE?(mg/dL) 0.70 0.70 ??SODIUM?(mmol/L) 139 139 ??POTASSIUM?(mmol/L) 4.1 4.1 ??CHLORIDE?(mmol/L) 106 107 ??CrCl?(CandG)?(ml/min) 68.65 68.01 ??AST/SGOT?(Unit/L) 26 25 ??ALT/SGPT?(Unit/L) 11 15 ??ALKALINE?PHOSPHATASE?(Unit/L) 83 91 ??BILIRUBIN,?TOTAL?(mg/dL) 0.5 0.6 ??PROTEIN?TOTAL?(gm/dl) 7.0 7.4 ??ALBUMIN,?SERUM?(gm/dl) 4.5 4.8 ??GLOBULIN?(gm/dl) 2.5 2.6 ??ALBUMIN/GLOBULIN?RATIO 1.8 1.8 ??CALCIUM,?SERUM?(mg/dL) 9.9 10.4 ??CALCIUM?SERUM?(CORRECTED)?(mg/dL) 9.9 10.4?H ASSESSMENT/PLAN: Follicular lymphoma B diagnosed in September 2023 Patient completed treatment with Bendamustine and Rituxan tolerated well Patient have radiating pain to the thigh patient had a lymphoma lesions in the lumbar and thoracic spine Will get MRI spine to evaluate PET scan in January was negative for any lymphoma Discussed maintenance rituximab as patient had more than 3 areas of lymph node involvement had B symptoms The CT scans do not reveal if patient had splenomegaly or not Patient had symptoms as well as elevated LDH at the time of diagnosis Patient do not want to do maintenance rituximab and want to be on active surveillance Mri spine and x ray reviewed and no evidence of malignancy Patient have severe arthritis Amy Greco, a patient with a history of follicular lymphoma stage III, presents with severe leg pain and difficulty moving, which has worsened over the weekend despite taking hydrocodone-acetaminophen. Severe leg pain Assessment: Patient reports severe leg pain that has worsened over the weekend, despite taking hydrocodone-acetaminophen 10-325 mg. Pain is localized to the back of the thigh and radiates down the leg, consistent with sciatica. Recent emergency room visit resulted in referrals to orthopedic surgeon and neurologist. MRI results were reviewed, but symptoms do not fully correlate with disc pathology. Differential diagnoses include degenerative disc disease, neuropathy from previous chemotherapy (bendamustine), and arthritis. Patient demonstrates decreased muscle strength and mobility due to pain. Plan: - Discontinue hydrocodone-acetaminophen ([place]) due to risk of dependence and ineffectiveness for neuropathic pain - Increase gabapentin to 600 mg PO q6-8h, max 1800 mg/day for neuropathic pain - Refer to neurology for further evaluation of pain etiology - Recommend physical therapy for exercises and mobility improvement - Advise on importance of movement and exercises to improve blood flow and reduce pain - Suggest water exercises once pool is available - Follow up with primary care provider - If pain worsens, recommend evaluation at a higher-level center (e.g., [place] or [place]) for comprehensive MRI and potential neurosurgical consultation History of follicular lymphoma, stage III Assessment: Patient has a history of follicular lymphoma, stage III, previously treated with bendamustine. Patient responded well to treatment. Current leg pain is not believed to be related to lymphoma recurrence based on recent imaging studies. Plan: - Continue routine follow-up for lymphoma surveillance Constipation Assessment: Patient reports constipation, likely secondary to opioid use (hydrocodone). Plan: - Recommend magnesium citrate and glycerin suppository for constipation reliefORDERS: Order # Description [id number] RETURN TO CLINIC: BILLING AND COMPLIANCE: I reviewed external records from providers outside my specialty as summarized above. I spent a total of 50 minutes on this patient?s care on the day of their visit excluding time spent related to any billed procedures. This time includes time spent with the patient as well as time spent documenting in the medical record, reviewing patients records and tests, obtaining history, placing orders, communicating with other healthcare professionals, counseling the patient, family or caregiver, and/or care coordination for the diagnoses above. Electronically Signed by: Lauri Castaneda MD T: 2:24 PM CC: PCP: Terry Colón Referring: Terry Colón This document was completed utilizing speech recognition software. Grammatical errors, random word insertions, pronoun errors, and incomplete sentences are an occasional consequence of this system due to software limitations, ambient noise, and hardware issues. Any formal questions or concerns about the content, text or information contained within the body of this dictation should be directly addressed to the provider for clarification.
== END 2024-08-17 23:59 | disposition home or self-care (01) ==
LOC: SCTC 11:23
PROVIDERS: PCP Internal Medicine; Referring Provider Internal Medicine; Visit Provider Internal Medicine Hematology & Oncology
DX: C82.13 Follicular lymphoma grade II, intra-abdominal lymph nodes (principal); M79.606 Pain in leg, unspecified; K59.00 Constipation, unspecified
CPT/HCPCS: 99212; G0463

== ENCOUNTER → 2024-09-06 | Outpatient (CLI) | payer OTHER, SELFPAY ==
--- NOTE | 2024-09-06 | XR_ITS ---
Examination:Right hip AP, lateral, AP pelvis 3 views, right femur 2 views Technique: Hip AP lateral, AP pelvis, 3 views, right femur 2 views Exam date and time:September 06, 2024 at 1247 hours INDICATIONS: Status post hip replacement 7 days ago with discharge at the incision site 4 days FINDINGS: Total right hip arthroplasty. Satisfactory alignment No fracture No cortical bone obstruction IMPRESSION: Total right hip replacement with satisfactory alignment Orthopedic hardware satisfactory position. Given the patient's presentation, consider CT scan pelvis post intravenous contrast follow-up
== END | disposition home or self-care (01) ==
PROVIDERS: PCP Internal Medicine; Referring Provider Internal Medicine; Visit Provider Internal Medicine
DX: M25.551 Pain in right hip (principal); Z96.641 Presence of right artificial hip joint
CPT/HCPCS: 73502

== ENCOUNTER → 2024-10-11 | Outpatient (CLI) | payer OTHER, SELFPAY ==
--- NOTE | 2024-10-11 14:00 | XR_ITS ---
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 Imaging was performed on an integrated 16-slice PET/CT scanner, with scanning from the skull base to the mid thigh. Serum blood glucose at the time of the injection was measured 88 mg/dL. CT scanning was performed without oral or intravenous contrast material. FINDINGS: Head and Neck: There is no debora hypermetabolism in the neck. The visualized portions of the brain are normal in appearance on CT. Chest: Interval 8 mm hypermetabolic lymph node posterior to the trachea axial image 77. 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 IMPRESSION: Compared to PET CT scan February 11, 2024 Interval 8 mm hypermetabolic lymph node posterior to the trachea Interval 12 mm hypermetabolic lymph node at the left cardiac apex Interval hypermetabolic masses anterior margin left kidney, lateral left abdominal wall, anterior lower abdomen peritoneum, soft tissue lateral to the right iliac bone, anterior to the right prosthetic hip as well as multiple hypermetabolic lymph nodes in the groin and medial upper right thigh Consider high resolution CT chest abdomen pelvis post intravenous contrast follow-up
== END | disposition home or self-care (01) ==
PROVIDERS: Referring Provider Internal Medicine Hematology & Oncology; Visit Provider Internal Medicine Hematology & Oncology
DX: C82.93 Follicular lymphoma, unspecified, intra-abdominal lymph nodes (principal)
CPT/HCPCS: 78815; A9552

== ENCOUNTER 2024-11-14 11:25 | Outpatient (RCR) | payer OTHER, SELFPAY ==
[2024-11-14 13:49] LABS: Basophils # (Auto) 0.0 Thou/mm3 (0.0-0.2); Basophils % (Auto) 1 % (0-2.5); Eosinophils # (Auto) 0.1 Thou/mm3 (0.0-0.5); Eosinophils % (Auto) 4 % (0-10); Hematocrit 34.2 % (36.0-46.0); Hemoglobin 11.1 g/dL (12.0-16.0); Immature Granulocytes Auto 0.06 Thou/mm3 (0.00-0.00); Lymphocytes # (Auto) 0.7 Thou/mm3 (1.0-4.8); Lymphocytes % (Auto) 34 % (10-50); Mean Corpuscular HGB Conc 32.5 g/dl (31.0-37.0); Mean Corpuscular Hemoglobin 31.1 pg (25.0-35.0); Mean Corpuscular Volume 96 fL (80-100); Monocytes # (Auto) 0.2 Thou/mm3 (0.0-0.8); Monocytes % (Auto) 11 % (0-12); Neutrophils # (Auto) 1.0 Thou/mm3 (1.8-7.7); Neutrophils % (Auto) 47 % (37-80); Nucleated Red Blood Cell # 0.00 Thou/mm3 (0.00-0.00); Nucleated Red Blood Cell % 0 /100 WBC (0); Platelet Count 226 Thou/mm3 (140-440); RDW Standard Deviation 45.1 fL (36.4-46.3); Red Blood Count 3.57 Miln/mm3 (4.00-5.20)
[2024-11-14 14:07] LABS: Alanine Aminotransferase 11 U/L (10-49); Albumin, Serum 4.4 gm/dL (3.4-4.8); Albumin/Globulin Ratio 1.9 (1.2-2.2); Alkaline Phosphatase 86 U/L (46-116); Anion Gap 9 (7-16); Aspartate Amino Transferase 12 U/L (0-34); BUN/Creatinine Ratio 22 Ratio (12-20); Bilirubin,Total 0.6 mg/dL (0.3-1.2); Blood Urea Nitrogen 13 mg/dL (9-23); Calcium 9.7 mg/dL (8.3-10.6); Calcium (Corrected) 9.7 mg/dL (8.5-10.1); Carbon Dioxide 27.7 mMol/L (20.0-31.0); Chloride 101 mMol/L (98-107); Creatinine (Component) 0.6 mg/dL (0.6-1.3); Globulin 2.3 gm/dL (2.3-3.5); Glucose 90 mg/dL (74-106); LDH (Lactate Dehydrogenase) 152 U/L (120-246); Osmolality,Calculated 275 (275-295); Potassium 3.9 mMol/L (3.4-5.1); Sodium 138 mMol/L (136-145); Total Protein 6.7 gm/dL (5.7-8.2); eGFR > 60 See Note
[2024-11-14 14:26] LABS: White Blood Count 2.2 Thou/mm3 (3.6-11.0)
[2024-11-14 14:32] LABS: Uric Acid 1.7 mg/dL (3.1-7.8)
[2024-11-14 14:46] LABS: Basophils (Manual) 4 % (0-2); Eosinophils (Manual) 8 % (0-4); Lymphocytes (Manual) 34 % (20-44); Monocytes (Manual) 8 % (2-9); Neutrophils (Manual) 46 % (50-70)
== END 2024-11-17 23:59 | disposition home or self-care (01) ==
LOC: SCTC 11:25
PROVIDERS: PCP Internal Medicine; Referring Provider Internal Medicine; Visit Provider Internal Medicine Hematology & Oncology
DX: C82.13 Follicular lymphoma grade II, intra-abdominal lymph nodes (principal)
CPT/HCPCS: 36591; 80053; 83615; 84550; 85025; A4216; J1642

== ENCOUNTER → 2024-11-17 | Outpatient (CLI) | payer OTHER, SELFPAY ==
[2024-11-17 12:19] LABS: Basophils # (Auto) 0.0 Thou/mm3 (0.0-0.2); Basophils % (Auto) 0 % (0-2.5); Eosinophils # (Auto) 0.1 Thou/mm3 (0.0-0.5); Eosinophils % (Auto) 0 % (0-10); Hematocrit 33.4 % (36.0-46.0); Hemoglobin 10.8 g/dL (12.0-16.0); Immature Granulocytes Auto 2.87 Thou/mm3 (0.00-0.00); Lymphocytes # (Auto) 1.3 Thou/mm3 (1.0-4.8); Lymphocytes % (Auto) 7 % (10-50); Mean Corpuscular HGB Conc 32.3 g/dl (31.0-37.0); Mean Corpuscular Hemoglobin 31.5 pg (25.0-35.0); Mean Corpuscular Volume 97 fL (80-100); Monocytes # (Auto) 1.3 Thou/mm3 (0.0-0.8); Monocytes % (Auto) 8 % (0-12); Neutrophils # (Auto) 11.5 Thou/mm3 (1.8-7.7); Neutrophils % (Auto) 67 % (37-80); Nucleated Red Blood Cell # 0.10 Thou/mm3 (0.00-0.00); Nucleated Red Blood Cell % 1 /100 WBC (0); Platelet Count 161 Thou/mm3 (140-440); RDW Standard Deviation 46.3 fL (36.4-46.3); Red Blood Count 3.43 Miln/mm3 (4.00-5.20); White Blood Count 17.1 Thou/mm3 (3.6-11.0)
[2024-11-17 12:43] LABS: Alanine Aminotransferase 11 U/L (10-49); Albumin, Serum 4.5 gm/dL (3.4-4.8); Albumin/Globulin Ratio 1.9 (1.2-2.2); Alkaline Phosphatase 107 U/L (46-116); Anion Gap 10 (7-16); Aspartate Amino Transferase 22 U/L (0-34); BUN/Creatinine Ratio 16 Ratio (12-20); Bilirubin,Total 0.4 mg/dL (0.3-1.2); Blood Urea Nitrogen 11 mg/dL (9-23); Calcium 9.7 mg/dL (8.3-10.6); Calcium (Corrected) 9.7 mg/dL (8.5-10.1); Carbon Dioxide 26.4 mMol/L (20.0-31.0); Chloride 103 mMol/L (98-107); Creatinine (Component) 0.7 mg/dL (0.6-1.3); Globulin 2.4 gm/dL (2.3-3.5); Glucose 105 mg/dL (74-106); LDH (Lactate Dehydrogenase) 307 U/L (120-246); Osmolality,Calculated 276 (275-295); Potassium 4.2 mMol/L (3.4-5.1); Sodium 139 mMol/L (136-145); Total Protein 6.9 gm/dL (5.7-8.2); eGFR > 60 See Note
[2024-11-17 13:41] LABS: Path Review Blood Smear Sent to Pathologist
== END | disposition home or self-care (01) ==
PROVIDERS: PCP Internal Medicine; Referring Provider Internal Medicine Hematology & Oncology; Visit Provider Internal Medicine Hematology & Oncology
DX: C83.35 Diffuse large B-cell lymphoma, lymph nodes of inguinal region and lower limb (principal)
CPT/HCPCS: 36415; 80053; 83615; 85025

== ENCOUNTER → 2025-03-14 | Outpatient (CLI) | payer OTHER, MEDICAID, SELFPAY ==
[2025-03-14 08:10] LABS: Collection Type, Urine Clean Catch
[2025-03-14 08:43] LABS: Basophils # (Auto) 0.1 Thou/mm3 (0.0-0.2); Basophils % (Auto) 1 % (0-2.5); Eosinophils # (Auto) 0.1 Thou/mm3 (0.0-0.5); Eosinophils % (Auto) 1 % (0-10); Hematocrit 31.8 % (36.0-46.0); Hemoglobin 10.1 g/dL (12.0-16.0); Immature Granulocytes Auto 0.31 Thou/mm3 (0.00-0.00); Lymphocytes # (Auto) 0.9 Thou/mm3 (1.0-4.8); Lymphocytes % (Auto) 18 % (10-50); Mean Corpuscular HGB Conc 31.8 g/dl (31.0-37.0); Mean Corpuscular Hemoglobin 33.3 pg (25.0-35.0); Mean Corpuscular Volume 105 fL (80-100); Monocytes # (Auto) 0.7 Thou/mm3 (0.0-0.8); Monocytes % (Auto) 14 % (0-12); Neutrophils # (Auto) 3.1 Thou/mm3 (1.8-7.7); Neutrophils % (Auto) 60 % (37-80); Nucleated Red Blood Cell # 0.02 Thou/mm3 (0.00-0.00); Nucleated Red Blood Cell % 0 /100 WBC (0); Platelet Count 182 Thou/mm3 (140-440); RDW Standard Deviation 53.9 fL (36.4-46.3); Red Blood Count 3.03 Miln/mm3 (4.00-5.20); White Blood Count 5.1 Thou/mm3 (3.6-11.0)
[2025-03-14 08:56] LABS: Glucose Estimated Average 105 mg/dL (80-131); Hemoglobin A1C 5.3 % Hgb (4.8-6.0)
[2025-03-14 09:06] LABS: Bacteria,Urine Rare; Bilirubin,Urine Negative (Negative); Blood,Urine Negative (Negative); Clarity,Urine Clear (Clear/Hazy); Color,Urine Lt-Yellow (Lt Yel-Yel); Glucose, Urine Negative (Negative); Ketones,Urine Negative (Negative); Leukocyte Esterase,Urine Positive (Negative); Nitrite,Urine Positive (Negative); PH,Urine 7.5 (5.0-7.0); Protein,Urine Negative (Neg - Trace); RBC,Urine 8 /hpf (0-3); Specific Gravity,Urine 1.013 (1.001-1.035); Squamous Epithelial Cell,Urine < 1 /hpf (0-5); Urobilinogen,Urine Negative mg/dL (0.0-1.0); WBC,Urine 27 /hpf (0-5)
[2025-03-14 09:07] LABS: Alanine Aminotransferase 11 U/L (10-49); Albumin, Serum 4.7 gm/dL (3.4-4.8); Albumin/Globulin Ratio 2.4 (1.2-2.2); Anion Gap 10 (7-16); Aspartate Amino Transferase 18 U/L (0-34); BUN/Creatinine Ratio 14 Ratio (12-20); Bilirubin,Total 0.4 mg/dL (0.3-1.2); Blood Urea Nitrogen 10 mg/dL (9-23); Calcium 10.0 mg/dL (8.3-10.6); Calcium (Corrected) 10.0 mg/dL (8.5-10.1); Carbon Dioxide 27.0 mMol/L (20.0-31.0); Chloride 106 mMol/L (98-107); Creatinine (Component) 0.7 mg/dL (0.6-1.3); Globulin 2.0 gm/dL (2.3-3.5); Glucose 104 mg/dL (74-106); Osmolality,Calculated 283 (275-295); Potassium 3.9 mMol/L (3.4-5.1); Sodium 143 mMol/L (136-145); Thyroid Stimulating Hormone 1.43 uIU/mL (0.55-4.78); Total Protein 6.7 gm/dL (5.7-8.2); Uric Acid 5.4 mg/dL (3.1-7.8); eGFR > 60 See Note
[2025-03-14 09:09] LABS: Vitamin B12 > 2000 pg/mL (211-911); Vitamin D 25 Hydroxy Total 37.3 ng/mL (7.3-40.2)
[2025-03-14 10:01] LABS: Alkaline Phosphatase 76 U/L (46-116); Cardiac Risk Estimate 3.9 RATIO (3.7-5.6); Cholesterol 198 mg/dL (132-200); HDL Cholesterol 51 mg/dL (40-60)
[2025-03-14 10:12] LABS: LDL Cholesterol,Calculated 118 mg/dL (0-130); Triglycerides 145 mg/dL (30-150)
== END | disposition home or self-care (01) ==
LOC: COPL 07:42
PROVIDERS: PCP Internal Medicine; Referring Provider Internal Medicine; Visit Provider Internal Medicine
DX: Z00.00 Encounter for general adult medical examination without abnormal findings (principal); E78.5 Hyperlipidemia, unspecified; C82.13 Follicular lymphoma grade II, intra-abdominal lymph nodes; B38.1 Chronic pulmonary coccidioidomycosis; N39.0 Urinary tract infection, site not specified
CPT/HCPCS: 36415; 80053; 80061; 81001; 82306; 82607; 83036; 84443; 84550; 85025